=== PATIENT | female | born 2000 | race African-American/Black ===

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

== ENCOUNTER 2019-05-25 08:42 | Emergency (ER) | payer MEDICAID, OTHER ==
[~2019-05-25] VITALS: Ht 160 cm; Wt 57.0 kg
[2019-05-25] MEDS ORDERED: ACETAMINOPHEN 325MG TABLET PO ONE (09:30)
[2019-05-25 09:48] LABS: CLARITY URINE TURBID (CLEAR); COLOR URINE YELLOW (YELLOW); KETONES URINE 2+ (NEGATIVE); LEUKOCYTE ESTERASE URINE TRACE (NEGATIVE); NITRITE URINE NEGATIVE (NEGATIVE); OCCULT BLOOD URINE NEGATIVE (NEGATIVE); PROTEIN URINE NEGATIVE (NEGATIVE); SPECIFIC GRAVITY URINE 1.026 (1.005-1.030); UROBILINOGEN URINE 0.2 E.U./dL (0.2-1.0)
[2019-05-25] MEDS ORDERED: MAGNESIUM/ALUMINUM HYDROXIDE/SIMETHICONE 30ML UDC PO STA (11:50)
[2019-05-25] MEDS ORDERED: VISCOUS LIDOCAINE 2% 15 ML UDC PO STA (11:50)
[2019-05-25] MEDS ORDERED: DICYCLOMINE 10 MG/5 ML ORAL SYR PO STA (11:50)
[2019-05-25 12:15] VITALS: BP 110/67
== END 2019-05-25 12:20 | disposition home or self-care (01) ==
LOC: ER 08:42
DX: R10.13 Epigastric pain (principal)
CPT/HCPCS: 76705; 81003; 81025; 99284